=== PATIENT | female | born 1975 | race African-American/Black ===

== ENCOUNTER 2023-04-15 22:01 | Emergency (ER) | payer SELFPAY ==
[~2023-04-15] VITALS: Ht 167.6 cm; Wt 107.0 kg
[2023-04-15 22:34] VITALS: BP 124/79; PULSE 61; RESP 16; TEMP 98.2; O2SAT 100
== END 2023-04-16 05:04 | disposition left against medical advice (07) ==
LOC: ER 22:01
DX: R07.89 Other chest pain (principal); Z53.21 Procedure and treatment not carried out due to patient leaving prior to being seen by health care provider
CPT/HCPCS: 99281